=== PATIENT | female | born 1945 | race Caucasian/White ===

== ENCOUNTER 2016-10-28 15:53 | Observation (INO) | payer MEDICARE ==
--- NOTE | 2016-10-28 16:46 | ER Document Report ---
ED Medical Screen (RME) - General Chief Complaint: Chest Pain Stated Complaint: CHEST PAIN Notes: Patient was walking in the mall about an hour ago when she suddenly experienced "tightness" in the anterior portion of her chest, between the breasts. This is the first time she's ever experienced this sensation. It does not radiate. She says that she was nauseated and had some sweats. All of her symptoms continued for about 30 minutes until she got here to the emergency department and they went away. Denies shortness of breath. Patient has been sick recently and treated with a Zithromax for a week plus a steroid pill and an injection of cortisone for her respiratory illness. Patient says that she's been under a lot of stress lately. Her sister recently. Patient is actually tearful during her evaluation. Patient had a heart attack in 1999 and a stroke in 2013. Hypothyroid. On Plavix. No history of hypertension or diabetes. TRAVEL OUTSIDE OF THE [place] IN LAST 30 DAYS: No - Related Data Allergies/Adverse Reactions: morphine Allergy (Verified 10/28/16 16:37) Past Medical History Renal/ Medical History: Denies: Hx Peritoneal Dialysis Physical Exam - Vital signs Vitals: Temp Pulse Resp BP Pulse Ox 98.0 F 88 18 131/69 H 95 10/28/16 16:11 10/28/16 16:11 10/28/16 16:11 10/28/16 16:11 10/28/16 16:11 Course - Vital Signs Vital signs: Temp Pulse Resp BP Pulse Ox 98.0 F 88 18 131/69 H 95 10/28/16 16:11 10/28/16 16:11 10/28/16 16:11 10/28/16 16:11 10/28/16 16:11
[2016-10-28 16:53] LABS: ABSOLUTE BASOPHILS # (AUTO) 0.2 10^3/uL (0.0-0.2); ABSOLUTE EOSINOPHILS # (AUTO) 0.1 10^3/uL (0.0-0.6); ABSOLUTE LYMPHOCYTES (AUTO) 4.1 10^3/uL (0.5-4.7); ABSOLUTE MONOCYTES (AUTO) 1.6 10^3/uL (0.1-1.4); ABSOLUTE NEUT (AUTO) 13.9 10^3/uL (1.7-8.2); BASOPHILS % (AUTO) 0.8 % (0-2); EOSINOPHILS % (AUTO) 0.7 % (0-6); HEMATOCRIT 43.6 % (36.0-47.0); HEMOGLOBIN 14.8 g/dL (12.0-15.5); HGB HCT DIFFERENCE 0.8; LYMPHOCYTES % (AUTO) 20.7 % (13-45); MEAN CORPUSCULAR HEMOGLOBIN 28.6 pg (27.0-33.4); MEAN CORPUSCULAR VOLUME 84 fl (80-97); MONOCYTES % (AUTO) 7.8 % (3-13); RED BLOOD COUNT 5.17 10^6/uL (3.72-5.28); RED CELL DISTRIBUTION WIDTH 14.6 % (11.5-14.0); WHITE BLOOD COUNT 19.9 10^3/uL (4.0-10.5)
[2016-10-28 17:25] LABS: ALANINE AMINOTRANSFERASE 32 U/L (9-52); ALBUMIN 4.1 g/dL (3.5-5.0); ALKALINE PHOSPHATASE 165 U/L (38-126); ANION GAP 12 (5-19); ASPARTATE AMINO TRANSFERASE 24 U/L (14-36); BILIRUBIN,DIRECT 0.4 mg/dL (0.0-0.4); BILIRUBIN,TOTAL 0.7 mg/dL (0.2-1.3); BLOOD UREA NITROGEN 22 mg/dL (7-20); CARBON DIOXIDE 28 mmol/L (22-30); CHLORIDE 102 mmol/L (98-107); GLUCOSE 115 mg/dL (75-110); POTASSIUM 4.5 mmol/L (3.6-5.0); SODIUM 141.8 mmol/L (137-145); TOTAL PROTEIN 6.7 g/dL (6.3-8.2)
[2016-10-28 17:37] LABS: CREATINE KINASE MB 0.52 ng/mL (<4.55)
[2016-10-28 17:39] LABS: TROPONIN I < 0.012 ng/mL
--- NOTE | 2016-10-28 17:44 | ER Document Report ---
ED Cardiac - General Mode of Arrival: Ambulatory Information source: Patient, Relative TRAVEL OUTSIDE OF THE [place] IN LAST 30 DAYS: No - HPI Patient complains to provider of: Chest pain Associated symptoms: Other - See above <YESSI MULLER - Last Filed: 10/28/16 20:15> <JAMEEL RENTERIA - Last Filed: 10/28/16 23:37> - General Chief Complaint: Chest Pain Stated Complaint: CHEST PAIN Notes: Patient is a 71 year old female, with a past medical history including CVA and heart attack, who presents to the emergency department complaining of chest pain onset at 1530 today. Patient states that she is not in any pain now and feels better. Patient describes the pain as tightening across her whole chest that does not radiate. Patient also complains of nausea, diaphoresis, and a cough for the past 3 weeks. Patient denies shortness of breath and fever. Patient states she has been under a lot of stress recently with the of her sister last week. Patient is currently on Plavix and prednisone. (YESSI MULLER) - Related Data Allergies/Adverse Reactions: morphine Allergy (Verified 10/28/16 16:37) Home Medications: Current Home Medications Atorvastatin Calcium [Lipitor 20 mg Tablet] 20 mg PO DAILY 10/28/16 [History] Calcium Carbonate/Vitamin D3 [Calcium 500-Vit D3 200 Caplet] 1 each PO DAILY 05/06 [History] Clopidogrel Bisulfate [Plavix 75 mg Tablet] 75 mg PO DAILY 10/28/16 [History] Levothyroxine Sodium [Synthroid 0.1 mg Tablet] 0.1 mg PO DAILY 10/28/16 [History ] Past Medical History - General Information source: Patient - Social History Smoking Status: Unknown if Ever Smoked Family History: Reviewed & Not Pertinent Patient has suicidal ideation: No - Past Medical History Cardiac Medical History: Reports: Hx Heart Attack Pulmonary Medical History: Reports: Other - Hx Interstitial lung disease Neurological Medical History: Reports: Hx Cerebrovascular Accident <YESSI MULLER - Last Filed: 10/28/16 20:15> Review of Systems - Review of Systems Constitutional: See HPI, Diaphoresis. denies: Fever EENT: No symptoms reported Cardiovascular: See HPI, Chest pain Respiratory: See HPI, Cough Gastrointestinal: See HPI, Nausea Genitourinary: No symptoms reported Female Genitourinary: No symptoms reported Musculoskeletal: No symptoms reported Skin: No symptoms reported Hematologic/Lymphatic: No symptoms reported Neurological/Psychological: No symptoms reported -: Yes All other systems reviewed and negative <YESSI MULLER - Last Filed: 10/28/16 20:15> Course - Laboratory Result Diagrams: 10/28/16 16:40 10/28/16 16:40 - Consults Dr. Phillips Time consulted: 17:44 - Agrees to admit patient <YESSI MULLER - Last Filed: 10/28/16 20:15> - Laboratory Result Diagrams: 10/28/16 16:40 10/28/16 16:40 <JAMEEL RENTERIA - Last Filed: 10/28/16 23:37> - Re-evaluation Re-evalutation: 10/28/16 Patient with chest pain similar to her past [place]. No acute findings on EKG. Troponin negative. Patient will be admitted for further evaluation of her symptoms. Stable time of admission. Aspirin has been given. (JAMEEL RENTERIA) - Vital Signs Vital signs: Temp Pulse Resp BP Pulse Ox 98.0 F 88 17 124/77 92 10/28/16 16:11 10/28/16 16:11 10/28/16 23:00 10/28/16 22:44 10/28/16 23:00 - Laboratory Laboratory results interpreted by me: 10/28/16 10/28/16 16:40 16:40 WBC 19.9 H RDW 14.6 H Absolute Neutrophils 13.9 H Absolute Monocytes 1.6 H BUN 22 H Glucose 115 H Alkaline Phosphatase 165 H Discharge <YESSI MULLER - Last Filed: 10/28/16 20:15> - Discharge Admitting Provider: Lorenzo Phillips Unit Admitted: Telemetry <JAMEEL RENTERIA - Last Filed: 10/28/16 23:37> - Discharge Clinical Impression: Chest pain Qualifiers: Chest pain type: unspecified Qualified Code(s): R07.9 - Chest pain, unspecified Condition: Stable Disposition: ADMITTED OBSERVATION Scribe Attestation: 10/28/16 23:37 I personally performed the services described in the documentation, reviewed and edited the documentation which was dictated to the scribe in my presence, and it accurately records my words and actions. (JAMEEL RENTERIA) Scribe Documentation - Scribe Written by Scribe:: angelica Solis, 10/28/162012 acting as scribe for :: Joanna <YESSI MULLER - Last Filed: 10/28/16 20:15>
[2016-10-28] MEDS ORDERED: ASPIRIN 81 MG TABLET, CHEWABLE PO ONE (17:45)
[2016-10-28] MEDS ORDERED: ACETAMINOPHEN 325 MG TABLET PO PRN (18:30)
[2016-10-28] MEDS ORDERED: MAGNESIUM HYDROXIDE SUSP 30 ML UDCUP PO PRN (18:30)
[2016-10-28] MEDS ORDERED: IPRATROPIUM/ALBUTEROL 0.5-2.5 MG/3 ML AMPUL NEB PRN (18:30)
[2016-10-28] MEDS ORDERED: ONDANSETRON HCL INJ/PF 4 MG/2 ML SDV IV PRN (18:35)
--- NOTE | 2016-10-28 18:54 | EKG REPORT ---
SEVERITY:- ABNORMAL ECG - SINUS RHYTHM PROBABLE LEFT ATRIAL ABNORMALITY RIGHT VENTRICULAR HYPERTROPHY : Confirmed by: Cali Mcclellan MD 28-Oct-2016 18:53:33
--- NOTE | 2016-10-28 18:57 | PDOC H&P ---
History of Present Illness Admission Date/PCP: 10/28/2016 Dr Lizarraga, [facility] Patient complains of: chest pain History of Present Illness: SUSAN CALVO is a 71 year old female presents to the emergency department by private vehicle after suffering sudden onset of chest pain while shopping for sugars this afternoon with her friend and family. She describes it as a sharp stabbing pain in the right side of her chest and right upper quadrant, nonradiating, unrelieved until seen in the emergency department and given a sublingual nitroglycerin and associated with nausea and diaphoresis but no palpitations, no left arm or jaw pain, no dizziness, headache, numbness tingling , orthopnea, PND or swelling of her lower extremities. She does note occasional swelling and pain in her upper left calf for the last couple of weeks that seems to come and go. She also reports that her primary care provider's been treating chronic congestion and cough up a respiratory infection for the last 2 weeks. Initially she was placed on a Z-Bill and steroid injection but then got worse and was seen this past Friday and given another Dosepak and sent for a chest x-ray did not show a pneumonia and had labs drawn that are still pending as we speak. She is still complaining of a congested cough productive of yellow phlegm that has now turned clear and a developing hoarseness over the last couple weeks without sore throat or odynophagia. Evaluation in the emergency department EKG has some chronic changes but nothing acute and her first cardiac enzymes are negative. Past admit the patient for further evaluation and management. Cardiac risk factors: History of prior [place] seen on heart catheter in December 1999 without clinically significant coronary artery stenosis, a scar was seen on the left posterior heart suggestive of prior [place]. No bleeding or stenting was performed at that time. She recently taken daily aspirin was changed to Plavix after stroke in 2013 affecting the left side of her brain leaving her temporarily with expressive aphasia that has since resolved. She smokes 2 packs a day. She has a family history of coronary artery disease in her mother with early [place] and then in her 60s from congestive heart failure. She reports her cholesterol panel is always normal. She is of appropriate age and gender. Risk as well. Past Medical History Cardiac Medical History: Reports: Myocardial Infarction Pulmonary Medical History: Reports: Chronic Obstructive Pulmonary Disease (COPD ) - vs interstitual pneumonitis Neurological Medical History: Reports: Ischemic CVA Endocrine Medical History: Reports: Hypothyroidism Denies: Diabetes Mellitus Type 1, Diabetes Mellitus Type 2 Renal/ Medical History: Reports: None GI Medical History: Reports: None Past Surgical History Past Surgical History: Reports: Cholecystectomy, Hysterectomy, Orthopedic Surgery - back Social History Smoking Status: Current Every Day Smoker Cigarettes Packs Per Day: 2 Frequency of Alcohol Use: Occasional Hx Recreational Drug Use: No Hx Prescription Drug Abuse: No - Advance Directive Resuscitation Status: Full Code Family History Family History: CAD Parental Family History Reviewed: Yes Children Family History Reviewed: Yes Sibling(s) Family History Reviewed.: Yes Medication/Allergy Allergies/Adverse Reactions: morphine Allergy (Verified 10/28/16 16:37) Review of Systems Constitutional: ABSENT: chills, fever(s), headache(s), weight gain, weight loss Eyes: ABSENT: visual disturbances Ears: ABSENT: hearing changes Cardiovascular: PRESENT: chest pain. ABSENT: dyspnea on exertion, edema, orthropnea, palpitations Respiratory: PRESENT: cough, dyspnea, sputum. ABSENT: hemoptysis Gastrointestinal: PRESENT: nausea. ABSENT: abdominal pain, constipation, diarrhea, hematemesis, hematochezia, vomiting Genitourinary: ABSENT: dysuria, hematuria Musculoskeletal: ABSENT: joint swelling Integumentary: ABSENT: rash, wounds Neurological: ABSENT: abnormal gait, abnormal speech, confusion, dizziness, focal weakness, syncope Psychiatric: ABSENT: anxiety, depression Endocrine: ABSENT: cold intolerance, heat intolerance, polydipsia, polyuria Hematologic/Lymphatic: ABSENT: easy bleeding, easy bruising Physical Exam Vital Signs: Temp Pulse Resp BP Pulse Ox 98.0 F 88 15 133/78 H 99 10/28/16 16:11 10/28/16 16:11 10/28/16 18:01 10/28/16 17:50 10/28/16 18:01 Intake & Output 10/27/16 10/28/16 10/29/16 06:59 06:59 06:59 Weight 87.9 kg PHYSICAL EXAM GENERAL: NAD; well developed, well nourished; no obese; alert and oriented to person, place, time, situation HEENT: normocephalic, atraumatic; EOMI, PERRLA, no conjunctival injection, no scleral icterus; oral mucosa moist, neck supple, no LAD, normal ROM RESPIRATORY: no accessory muscle use, no increased WOB, good air entry bilaterally; no wheezes, rales, rhonchi; coarse inspiratory crackles Rt anterior upper chest CARDIO: no JVD; RRR; no systolic murmur; no tachycardia VASCULAR: no carotid bruit; no abdominal bruit; no pallor; 2+ radial, DP pulse ; normal capillary refill GI: soft; nondistended; normal bowel sounds; no hepato spleno megaly; no rebound, rigidity, guarding; nontender NEURO: normal patella reflexes; normal motor function; no dysarthria; no nystagmus; tongue protrudes midline MSK: 5/5 strength; normal ROM hips; ambulatory without assistance; no tenderness EXTREMITIES: no calf tender; no palpable cords in calf; no clubbing, cyanosis , pedal edema ;varicosities noted in bilat calves PSYCH: normal affect, normal mood SKIN: warm; moist; no petechiae; no telengectasias; no jaundice; no rash Results Laboratory Results: 10/28/16 16:40 10/28/16 16:40 10/28/16 10/28/16 16:40 16:40 WBC 19.9 H RBC 5.17 Hgb 14.8 Hct 43.6 MCV 84 MCH 28.6 MCHC 34.0 RDW 14.6 H Plt Count 332 Seg Neutrophils % 70.0 Lymphocytes % 20.7 Monocytes % 7.8 Eosinophils % 0.7 Basophils % 0.8 Absolute Neutrophils 13.9 H Absolute Lymphocytes 4.1 Absolute Monocytes 1.6 H Absolute Eosinophils 0.1 Absolute Basophils 0.2 Sodium 141.8 Potassium 4.5 Chloride 102 Carbon Dioxide 28 Anion Gap 12 BUN 22 H Creatinine 0.80 Est GFR ( Amer) > 60 Est GFR (Non-Af Amer) > 60 Glucose 115 H Calcium 10.0 Total Bilirubin 0.7 AST 24 ALT 32 Alkaline Phosphatase 165 H Total Protein 6.7 Albumin 4.1 10/28/16 16:40 CK-MB (CK-2) 0.52 Troponin I < 0.012 EKG Comments: A normal sinus rhythm with S1 and T3 but no Q wave in lead 3, right axis deviation of 106 and rabbit ears in V1 and V2 suggestive of right ventricular hypertrophy Impressions: Chest X-Ray 10/28/16 16:43 IMPRESSION: COPD. NO ACUTE RADIOGRAPHIC FINDING IN THE CHEST. Status: Image reviewed by me - I disagree with radiology, think there is something in the clay-hilum on the right just proximal to the pulmonary artery with streaky haziness in the right upper lobe. Assessment & Plan - Diagnosis (1) Chest pain Qualifiers: Chest pain type: unspecified Qualified Code(s): R07.9 - Chest pain, unspecified Is this a current diagnosis for this admission?: YesPlan: Plan is to admit the patient to a monitored bed for cardiac evaluation with serial cardiac enzymes and order monitored on telemetry. She has a ANDREW score of 4. However, my suspicion is high for pulmonary cause however. We'll check a CTA of the chest and if that is in fact negative then recommend stress testing prior to discharge. We'll keep her nothing by mouth and tentatively schedule stress test for morning. (2) Leukocytosis Qualifiers: Leukocytosis type: unspecified Qualified Code(s): D72.829 - Elevated white blood cell count, unspecified Is this a current diagnosis for this admission?: YesPlan: Unclear etiology, suspect either a pulmonary source or secondary to recent steroid use. Will check again in the morning. Follow up on CT of the chest. 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 (4) History of CVA (cerebrovascular accident) without residual deficits Is this a current diagnosis for this admission?: YesPlan: Continue Plavix therapy. (5) Tobacco dependence Is this a current diagnosis for this admission?: YesPlan: Tobacco cessation counseling, nicotine replacement while hospitalized. (6) Hypothyroidism Qualifiers: Hypothyroidism type: unspecified Qualified Code(s): E03.9 - Hypothyroidism, unspecified Is this a current diagnosis for this admission?: Yes - Time Time Spent: 50 to 70 Minutes Medications reviewed and adjusted accordingly: Yes Anticipated discharge: Home Within: within 24 hours
[2016-10-28] MEDS ORDERED: ENOXAPARIN SODIUM INJ 40 MG/0.4 ML DISP.SYRIN SUBCUT ONE (19:00)
[2016-10-28 19:02] LABS: PROTHROMBIN TIME 12.4 SEC (11.4-15.4)
[2016-10-28] MEDS ORDERED: NICOTINE 21 MG/24 HR PATCH.TD24 TD ONE (20:00)
[2016-10-28 23:15] LABS: CREATINE KINASE MB 0.58 ng/mL (<4.55)
[2016-10-28 23:26] LABS: TROPONIN I < 0.012 ng/mL
[2016-10-29 05:04] LABS: HEMATOCRIT 42.5 % (36.0-47.0); HGB HCT DIFFERENCE -0.5; MEAN CORPUSCULAR HGB CONC 32.8 g/dL (32.0-36.0); MEAN CORPUSCULAR VOLUME 85 fl (80-97); RED CELL DISTRIBUTION WIDTH 14.7 % (11.5-14.0)
[2016-10-29 05:24] LABS: CREATINE KINASE 24 U/L (30-135); Direct HDL 56 mg/dL (>40); MAGNESIUM 2.3 mg/dL (1.6-2.3); TRIGLYCERIDES 72 mg/dL (<150)
[2016-10-29 05:35] LABS: DIRECT LDL 61 mg/dL (<100)
[2016-10-29 05:36] LABS: CREATINE KINASE MB 0.44 ng/mL (<4.55); TROPONIN I < 0.012 ng/mL
[2016-10-29] MEDS ORDERED: LANSOPRAZOLE 30 MG TAB.RAP.DR PO SCH (06:00)
[2016-10-29] MEDS ORDERED: ENOXAPARIN SODIUM INJ 40 MG/0.4 ML DISP.SYRIN SUBCUT SCH (08:00)
--- NOTE | 2016-10-29 09:17 | Progress Note ---
Provider Note Provider Note: 10/28/2016: CT angiogram of chest report reviewed. Discussed by phone at 11:30 PM with interpreting radiologist, Dr. Batista. He felt overall the likelihood of pulmonary embolus was low, but there were some limitations in the study, as documented in his dictated report. He suggested also obtaining a ventilation perfusion lung scan to add more certainty to the presence or absence of pulmonary emboli. Study was ordered.
[2016-10-29] MEDS ORDERED: DOCUSATE SODIUM 100 MG CAPSULE PO SCH (10:00)
[2016-10-29] MEDS ORDERED: NICOTINE 21 MG/24 HR PATCH.TD24 TD SCH (10:00)
[2016-10-29 11:33] LABS: CREATINE KINASE MB 0.42 ng/mL (<4.55)
[2016-10-29 11:34] LABS: TROPONIN I < 0.012 ng/mL
[2016-10-29 13:45] VITALS: BP 108/56
--- NOTE | 2016-10-31 08:55 | PDOC DISCHARGE SUMMARY ---
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, greater than 8 weeks Is this a current diagnosis for this admission?: Yes (6) Tobacco dependence Is this a current diagnosis for this admission?: Yes (7) Bronchitis Is this a current diagnosis for this admission?: Yes - Additional Information Resuscitation Status: Full Code Discharge Activity: Activity As Tolerated, Balance Activity w/Rest, Slowly Increase Activity Home Medications: Atorvastatin Calcium [Lipitor 20 mg Tablet] 20 mg PO DAILY 10/28/16 Calcium Carbonate/Vitamin D3 [Calcium 500-Vit D3 200 Caplet] 1 each PO DAILY 05/06 Clopidogrel Bisulfate [Plavix 75 mg Tablet] 75 mg PO DAILY 10/28/16 Levothyroxine Sodium [Synthroid 0.1 mg Tablet] 0.1 mg PO DAILY 10/28/16 Albuterol Sulfate [Albuterol Sulfate 2.5mg/3 mL] 2.5 mg IH Q6HP PRN #30 ml 10/29 Doxycycline Hyclate 100 mg PO BID #20 capsule 10/29/16 Fluticasone/Vilanterol [Breo Ellipta 200-25 Mcg INH] 1 each IH DAILY #1 blst.w.dev 10/29/16 Nebulizer [Nebulizer Machine] 1 each ASDIR PRN #1 kit 10/29/16 Nicotine [Nicoderm 21 mg/24 Hr Transderm Patch] 1 patch TD DAILY #30 patch.td24 10/29/16 Prednisone 20 mg PO ASDIR #16 tablet 10/29/16 Tiotropium [place] [Spiriva Handihaler 18 mcg/dose (30 Dose)] 1 cap IH DAILY # 30 capsule 10/29/16 History of Present Illness Patient complains of: chest pain History of Present Illness: SUSAN CALVO is a 71 year old female presents to the emergency department by private vehicle after suffering sudden onset of chest pain while shopping for sugars this afternoon with her friend and family. She describes it as a sharp stabbing pain in the right side of her chest and right upper quadrant, nonradiating, unrelieved until seen in the emergency department and given a sublingual nitroglycerin and associated with nausea and diaphoresis but no palpitations, no left arm or jaw pain, no dizziness, headache, numbness tingling, orthopnea, PND or swelling of her lower extremities. She does note occasional swelling and pain in her upper left calf for the last couple of weeks that seems to come and go. She also reports that her primary care provider's been treating chronic congestion and cough up a respiratory infection for the last 2 weeks. Initially she was placed on a Z- Bill and steroid injection but then got worse and was seen this past Friday and given another Dosepak and sent for a chest x-ray did not show a pneumonia and had labs drawn that are still pending as we speak. She is still complaining of a congested cough productive of yellow phlegm that has now turned clear and a developing hoarseness over the last couple weeks without sore throat or odynophagia. Evaluation in the emergency department EKG has some chronic changes but nothing acute and her first cardiac enzymes are negative. Past admit the patient for further evaluation and management. Cardiac risk factors: History of prior [place] seen on heart catheter in December 1999 without clinically significant coronary artery stenosis, a scar was seen on the left posterior heart suggestive of prior [place]. No bleeding or stenting was performed at that time. She recently taken daily aspirin was changed to Plavix after stroke in 2013 affecting the left side of her brain leaving her temporarily with expressive aphasia that has since resolved. She smokes 2 packs a day. She has a family history of coronary artery disease in her mother with early [place] and then in her 60s from congestive heart failure. She reports her cholesterol panel is always normal. She is of appropriate age and gender. Risk as well. Hospital Course Hospital Course: Patient did rule out for acute coronary syndrome; she was treated as acute bronchitis; she did have a productive cough and wheezing She had a negative CTA and lung scan Patient a had an uneventful course She was referred to primary care physician She certainly a will need stress test to be performed as an outpatient when her respiratory issues are improved Physical Exam Vital Signs: Temp Pulse Resp BP Pulse Ox 97.7 F 73 14 108/56 L 100 10/29/16 13:34 10/29/16 13:34 10/29/16 13:34 10/29/16 13:34 10/29/16 13:34 Intake & Output 10/30/16 10/31/16 11/01/16 00:59 00:59 00:59 Intake Total 200 Balance 200 Weight 81.8 kg General appearance: PRESENT: no acute distress, well-developed, well-nourished Head exam: PRESENT: atraumatic, normocephalic Eye exam: PRESENT: conjunctiva pink, EOMI, PERRLA. ABSENT: scleral icterus Ear exam: PRESENT: normal external ear exam Mouth exam: PRESENT: moist, tongue midline Neck exam: ABSENT: carotid bruit, JVD, lymphadenopathy, thyromegaly Respiratory exam: PRESENT: clear to auscultation gill. ABSENT: rales, rhonchi, wheezes Cardiovascular exam: PRESENT: RRR. ABSENT: diastolic murmur, rubs, systolic murmur Pulses: PRESENT: normal dorsalis pedis pul Vascular exam: PRESENT: normal capillary refill GI/Abdominal exam: PRESENT: normal bowel sounds, soft. ABSENT: distended, guarding, mass, organolmegaly, rebound, tenderness Rectal exam: PRESENT: deferred Extremities exam: PRESENT: full ROM. ABSENT: calf tenderness, clubbing, pedal edema Neurological exam: PRESENT: alert, awake, oriented to person, oriented to place , oriented to time, oriented to situation, CN II-XII grossly intact. ABSENT: motor sensory deficit Psychiatric exam: PRESENT: appropriate affect, normal mood. ABSENT: homicidal ideation, suicidal ideation Skin exam: PRESENT: dry, intact, warm. ABSENT: cyanosis, rash Results Laboratory Results: 10/29/16 04:55 10/28/16 10/28/16 10/29/16 22:35 22:35 04:55 Creatine Kinase 27 L Cancelled CK-MB (CK-2) 0.58 Troponin I < 0.012 10/29/16 10/29/16 10/29/16 04:55 04:55 10:43 Creatine Kinase 24 L CK-MB (CK-2) 0.44 0.42 Troponin I < 0.012 < 0.012 Labs- Last Values WBC 13.0 10^3/uL (4.0-10.5) H 10/29/16 04:55 RBC 5.00 10^6/uL (3.72-5.28) 10/29/16 04:55 Hgb 14.0 g/dL (12.0-15.5) 10/29/16 04:55 Hct 42.5 % (36.0-47.0) 10/29/16 04:55 MCV 85 fl (80-97) 10/29/16 04:55 MCH 28.0 pg (27.0-33.4) 10/29/16 04:55 MCHC 32.8 g/dL (32.0-36.0) 10/29/16 04:55 RDW 14.7 % (11.5-14.0) H 10/29/16 04:55 Plt Count 262 10^3/uL (150-450) 10/29/16 04:55 Seg Neutrophils % 70.0 % (42-78) 10/28/16 16:40 Lymphocytes % 20.7 % (13-45) 10/28/16 16:40 Monocytes % 7.8 % (3-13) 10/28/16 16:40 Eosinophils % 0.7 % (0-6) 10/28/16 16:40 Basophils % 0.8 % (0-2) 10/28/16 16:40 Absolute Neutrophils 13.9 10^3/uL (1.7-8.2) H 10/28/16 16:40 Absolute Lymphocytes 4.1 10^3/uL (0.5-4.7) 10/28/16 16:40 Absolute Monocytes 1.6 10^3/uL (0.1-1.4) H 10/28/16 16:40 Absolute Eosinophils 0.1 10^3/uL (0.0-0.6) 10/28/16 16:40 Absolute Basophils 0.2 10^3/uL (0.0-0.2) 10/28/16 16:40 PT 12.4 SEC (11.4-15.4) 10/28/16 16:40 INR 0.90 10/28/16 16:40 D-Dimer 0.78 ug/mL (0.00-0.50) H 10/28/16 16:40 Sodium 141.8 mmol/L (137-145) 10/28/16 16:40 Potassium 4.5 mmol/L (3.6-5.0) 10/28/16 16:40 Chloride 102 mmol/L (98-107) 10/28/16 16:40 Carbon Dioxide 28 mmol/L (22-30) 10/28/16 16:40 Anion Gap 12 (5-19) 10/28/16 16:40 BUN 22 mg/dL (7-20) H 10/28/16 16:40 Creatinine 0.80 mg/dL (0.52-1.25) 10/28/16 16:40 Est GFR ( Amer) > 60 (>60) 10/28/16 16:40 Est GFR (Non-Af Amer) > 60 (>60) 10/28/16 16:40 Glucose 115 mg/dL (75-110) H 10/28/16 16:40 Hemoglobin A1c % 6.0 % (4.7-6.0) 10/29/16 04:55 Calcium 10.0 mg/dL (8.4-10.2) 10/28/16 16:40 Magnesium 2.3 mg/dL (1.6-2.3) 10/29/16 04:55 Total Bilirubin 0.7 mg/dL (0.2-1.3) 10/28/16 16:40 Direct Bilirubin 0.4 mg/dL (0.0-0.4) 10/28/16 16:40 Indirect Bilirubin Not Reportable 10/28/16 16:40 Neonat Total Bilirubin Not Reportable 10/28/16 16:40 AST 24 U/L (14-36) 10/28/16 16:40 ALT 32 U/L (9-52) 10/28/16 16:40 Alkaline Phosphatase 165 U/L (38-126) H 10/28/16 16:40 Creatine Kinase 24 U/L (30-135) L 10/29/16 04:55 CK-MB (CK-2) 0.42 ng/mL (<4.55) 10/29/16 10:43 Troponin I < 0.012 ng/mL 10/29/16 10:43 Total Protein 6.7 g/dL (6.3-8.2) 10/28/16 16:40 Albumin 4.1 g/dL (3.5-5.0) 10/28/16 16:40 Triglycerides 72 mg/dL (<150) 10/29/16 04:55 Cholesterol 135.00 mg/dL (0-200) 10/29/16 04:55 LDL Cholesterol Direct 61 mg/dL (<100) 10/29/16 04:55 VLDL Cholesterol 14.0 mg/dL (10-31) 10/29/16 04:55 HDL Cholesterol 56 mg/dL (>40) 10/29/16 04:55 TSH 2.09 uIU/mL (0.47-4.68) 10/29/16 04:55 Impressions: Chest/Abdomen CTA 10/28/16 00:00 IMPRESSION: No acute cardiopulmonary findings. No evidence of pulmonary emboli. Limitation. Chest X-Ray 10/28/16 16:43 IMPRESSION: COPD. NO ACUTE RADIOGRAPHIC FINDING IN THE CHEST. Lung Scan-VQ PA 10/29/16 00:31 IMPRESSION: Ventilation perfusion lung scan showing no evidence for pulmonary embolic disease. Plan Discharge Plan: home Time Spent: Greater than 30 Minutes
== END 2016-10-29 14:42 | disposition home or self-care (01) ==
LOC: ER 15:53 → EH 18:30 → 4S 10-29 00:45
PROVIDERS: ADMIT Internal Medicine; ATTEND Internal Medicine
DX: R07.9 Chest pain, unspecified (principal); E03.9 Hypothyroidism, unspecified; D72.829 Elevated white blood cell count, unspecified; J44.9 Chronic obstructive pulmonary disease, unspecified; J40 Bronchitis, not specified as acute or chronic; F17.200 Nicotine dependence, unspecified, uncomplicated; I25.2 Old myocardial infarction; Z86.73 Personal history of transient ischemic attack (TIA), and cerebral infarction without residual deficits
CPT/HCPCS: 93005; 99285; 36415 ×2; 82553 ×2; 82550 ×2; 83735; 84443; 85025; 85027; 85610; 80053; 84484 ×2; 83036; 85379; 80061; 71020; 78582; 71275; 93010; G0378 ×3; A9540; A9567; A9270 ×3; J1650; J3490; Q9969